=== PATIENT | male | born 1985 | race Caucasian/White ===

== ENCOUNTER 2024-05-28 16:38 | Inpatient (IN) ==
--- NOTE | 2024-05-28 16:58 | EKG ---
Test Reason : elevated heartrate Blood Pressure : */* mmHG Vent. Rate : 127 BPM Atrial Rate : 127 BPM P-R Int : 142 ms QRS Dur : 90 ms QT Int : 294 ms P-R-T Axes : 50 61 -60 degrees QTc Int : 427 ms Sinus tachycardia Abnormal ECG No previous ECGs available Confirmed by Jose El MD ([id number]) on 05/29/2024 5:49:33 AM Referred By: Confirmed By: Jose El MD
[2024-05-28 17:03] VITALS: BMI 27.0
--- NOTE | 2024-05-28 17:11 | DR.SOBA ---
HPI Time Seen Time Seen by Provider: 05/28/24 16:58 Primary Care Physician Primary Care Physician: Jose Juan Complaints Chief Complaint Doctors Comments: 38-year-old male presents for evaluation. Patient was seen here last p.m. after developing flulike illness yesterday. Was found to have too numerous to count red blood cells and white blood cells in his urine. Patient was treated for a UTI. CT of the abdomen pelvis was unremarkable for acute abnormalities last p.m.. Patient started feeling worse after lunch today. He is spiking a fever. Developed nausea, dizziness, sensation of shortness of breath. Has been a little confused per the spouse . H ad hematuria last p.m., was better initially this a.m., but still some this afternoon. No history of previous UTI issues, no prostate issues, is monogamous. Patient's fever is 102.7. Chief Complaint:: pt amb to triage with c/o SOB since after lunch, dizziness, nausea, and chills, he c/o rash to upper chest area since this am, pt reports he was seen in the ER last night and dx with UTI, reports pt seems confused to her at times Self Treatment fo Chief Complaint: Cipro IV last night in ER and Cipro PO today that was ordered last night COVID-19 Coronavirus risk:travel/contact w/high risk person: No Has patient experienced Coronavirus symptoms: No Reviewed Nurses Notes Reviewed: Yes Source History Provided: Patient and Significant Other Mode of Arrival Mode of Arrival: Ambulatory Timing Onset of Chief Complaint: 05/28/24 PMH PMH Past Medical History: Yes Past Medical History: Anxiety and Hypertension Past Surgical History: Yes Surgical History: Ortho Surgery, Tonsillectomy and Other Past Surgical History Comment: T&A Family History History of Family Medical Conditions: Yes Family Medical History: Diabetes Mellitus and Cancer Social History Does patient currently use any type of tobacco product: No Alcohol Use: None Do you use any recreational Drugs:: No Lives With: Spouse Lives Where: Home Travel Risk Coronavirus risk:travel/contact w/high risk person: No Has patient experienced Coronavirus symptoms: No Infectious screening Have you traveled outside the country in the last 6 months?: No Isolation: Standard ROS Review of Systems Constitutional: Chills and Fever Eyes: No Symptoms Reported ENTM: No Symptoms Reported Respiratoy: No Symptoms Reported Cardiovascular: No Symptoms Reported Gastrointestinal/Abdominal: Nausea Genitourinary: Hematuria Neurological: Weakness and Dizziness Musculoskeletal: Muscle Pain Integumentary: No Symptoms Reported Hematologic/Lymphatic: No Symptoms Reported All Other Systems: Reviewed and Negative PE Vital Signs Vitals: Vital Signs Temperature 100.6 F Temperature 102.3 F Pulse Rate 113 Pulse Rate 112 Pulse Rate 108 Pulse Rate 108 Pulse Rate 109 Pulse Rate 114 Pulse Rate 115 Pulse Rate 122 Pulse Rate 132 Respiratory Rate 19 Respiratory Rate 21 Respiratory Rate 19 Respiratory Rate 19 Respiratory Rate 16 Respiratory Rate 19 Respiratory Rate 16 Respiratory Rate 24 Respiratory Rate 30 Blood Pressure 126/58 Blood Pressure 102/60 Blood Pressure 94/54 Blood Pressure 136/59 O2 Sat by Pulse Oximetry 96 O2 Sat by Pulse Oximetry 97 O2 Sat by Pulse Oximetry 96 O2 Sat by Pulse Oximetry 96 O2 Sat by Pulse Oximetry 96 O2 Sat by Pulse Oximetry 96 O2 Sat by Pulse Oximetry 94 O2 Sat by Pulse Oximetry 97 O2 Sat by Pulse Oximetry 94 General General Appearance: Alert and In No Apparent Distress Eyes Eye exam: PERRL and EOMI ENT ENT Exam: Normal Oropharynx, Mucous Membranes Moist and TM's Normal Bilaterally Neck Neck Exam: Normal Inspection and Full ROM; negative Meningismus Respiratory Respiratory Exam: Normal Lung Sounds Bilat; negative Accessory Muscle Use or Respiratory Distress Cardiovascular Cardiovascular Exam: Regular Rate, Normal Rhythm, Tachycardia and Normal Heart Sounds Abdominal Exam Abdominal Exam: Normal Bowel Sounds, Soft and Tenderness (Suprapubic region, no rebound) Extremities Extremities Exam: Normal Inspection and Full ROM; negative Edema Back Back Exam: Normal Inspection; negative (R) CVA Tenderness or (L) CVA Tenderness Neurologic Neurological Exam: Alert, Oriented X3 and CN II-XII Intact; negative Motor Sensory Deficit Skin Skin Exam: Warm and Dry COURSE Treatment Treatment: 38-year-old male seen and treated here last p.m. for UTI. Worsened this afternoon. Returned with a fever of 102+. Workup initiated. Patient given IV fluids, white blood cell count was 19,000 yesterday, is up to 27,000 now. Has 87% neutrophils, no reported bands. Chemistries overall acceptable. Has good kidney function. Swabs were negative for strep and COVID respiratory panel. Lactic acid elevated at 1.9, blood cultures were obtained. Patient was given IV Rocephin, 1 g. Rectal exam shows the patient have a tender, slightly boggy prostate. Recommend observation admission for further IV fluids, IV antibiotic treatment for probable prostatitis. 1952 - Discussed with his covering physician, Dr. Hammer, accepts the admission. Will continue IV Rocephin, IV Levaquin & IV fluids. ROR Labs Reviewed Laboratory Results Reviewed?: Yes 05/29/24 05:35 05/29/24 05:35 Laboratory: WBC 27.0 X10^3/uL (3.6-10.0) H 05/28/24 17:08 RBC 4.53 X10^6/uL (4.7-6.0) L 05/28/24 17:08 Hgb 13.8 g/dL (13.5-18.0) 05/28/24 17:08 Hct 40.3 % (42.0-54.0) L 05/28/24 17:08 MCV 89.0 fL (80.0-100.0) 05/28/24 17:08 MCH 30.4 pg (27.0-34.0) 05/28/24 17:08 MCHC 34.2 g/dL (33.0-35.0) 05/28/24 17:08 RDW 13.2 % (11.6-16.5) 05/28/24 17:08 Plt Count 294 X10^3/uL (150.0-450.0) 05/28/24 17:08 Plt Count Comment Adequate (ADEQUATE) 05/28/24 17:08 MPV 7.5 fL (7.4-11.0) 05/28/24 17:08 Neut % (Auto) 89.8 % (42.0-75.0) H 05/28/24 17:08 Lymph % (Auto) 5.0 % (21.0-51.0) L 05/28/24 17:08 [place] % (Auto) 5.0 % (0.0-13.0) 05/28/24 17:08 Eos % (Auto) 0.1 % (0.9-2.9) L 05/28/24 17:08 Baso % (Auto) 0.1 % (0.2-1.0) L 05/28/24 17:08 Neut # (Auto) 24.2 x10^3/uL (2.2-4.8) H 05/28/24 17:08 Lymph # (Auto) 1.4 X10^3/uL (1.3-2.9) 05/28/24 17:08 [place] # (Auto) 1.3 x10^3/uL (0.3-0.8) H 05/28/24 17:08 Eos # (Auto) 0.0 x10^3/uL (0.0-0.2) 05/28/24 17:08 Baso # (Auto) 0.0 X10^3/uL (0.0-0.1) 05/28/24 17:08 Absolute Nucleated RBC 0.0 /100WBC 05/28/24 17:08 Total Counted 100 05/28/24 17:08 Neutrophils % (Manual) 87 % (39-76) H 05/28/24 17:08 Lymphocytes % (Manual) 10 % (13-43) L 05/28/24 17:08 Monocytes % (Manual) 3 % (4-9) L 05/28/24 17:08 Plt Morphology Comment Normal (NORMAL) 05/28/24 17:08 RBC Morphology Normal (NORMAL) 05/28/24 17:08 Sodium 134 mmol/L (136-145) L 05/28/24 17:08 Corrected Sodium 135 mmol/L (136-145) L 05/28/24 17:08 Potassium 3.8 mmol/L (3.5-5.1) 05/28/24 17:08 Chloride 99 mmol/L (98-107) 05/28/24 17:08 Carbon Dioxide 26.5 mmol/L (21-32) 05/28/24 17:08 BUN 8 mg/dL (7-18) 05/28/24 17:08 Creatinine 1.10 mg/dL (0.70-1.30) 05/28/24 17:08 Est GFR (MDRD) Af Amer > 60 (>60) 05/28/24 17:08 Est GFR (MDRD) Non-Af > 60 (>60) 05/28/24 17:08 Glucose 130 mg/dL (65-99) H 05/28/24 17:08 Lactic Acid 1.9 mmol/L (0.4-2.0) 05/28/24 17:08 Calcium 8.9 mg/dL (8.5-10.1) 05/28/24 17:08 Corrected Calcium TNP 05/28/24 17:08 Total Bilirubin 1.10 mg/dL (0.2-1.0) H 05/28/24 17:08 AST 45 Units/L (15-37) H 05/28/24 17:08 ALT 60 Units/L (12-78) 05/28/24 17:08 Alkaline Phosphatase 89 Units/L (46-116) 05/28/24 17:08 Creatine Kinase 61 Units/L (39-308) 05/28/24 17:08 Total Protein 7.3 g/dL (6.4-8.2) 05/28/24 17:08 Albumin 3.6 g/dL (3.4-5.0) 05/28/24 17:08 Globulin 3.7 g/dL (2.5-4.5) 05/28/24 17:08 Albumin/Globulin Ratio 1.0 Ratio (1.1-2.1) L 05/28/24 17:08 Specimen Type Clean catch urine 05/28/24 19:13 Urine Color [place] (YELLOW) 05/28/24 19:13 Urine Appearance Clear (CLEAR) 05/28/24 19:13 Urine pH Cancelled 05/28/24 19:13 Ur Specific [place] Cancelled 05/28/24 19:13 Urine Protein Cancelled 05/28/24 19:13 Urine Glucose (UA) Cancelled 05/28/24 19:13 Urine Ketones Cancelled 05/28/24 19:13 Urine Blood Cancelled 05/28/24 19:13 Urine Nitrite Cancelled 05/28/24 19:13 Urine Bilirubin Cancelled 05/28/24 19:13 Urine Urobilinogen Cancelled 05/28/24 19:13 Ur Leukocyte Esterase Cancelled 05/28/24 19:13 Urine RBC 0-2 /HPF (0-3) 05/28/24 19:13 Urine WBC 3-5 /HPF (0-5) 05/28/24 19:13 Ur Squamous Epith Cells Rare /HPF (NEGATIVE) 05/28/24 19:13 Amorphous Sediment Trace /HPF (NEGATIVE) 05/28/24 19:13 Urine Bacteria Trace /HPF (NEGATIVE) 05/28/24 19:13 Ur Culture Indicated? No/not indicated 05/28/24 19:13 SARS-CoV-2 (PCR) Negative (NEGATIVE) 05/28/24 17:15 Influenza Type A (PCR) Negative (NEGATIVE) 05/28/24 17:15 Influenza Type B (PCR) Negative (NEGATIVE) 05/28/24 17:15 RSV (PCR) Negative (NEGATIVE) 05/28/24 17:15 S. pyogenes (TEM-PCR) Not detected (NOT DETECT) 05/28/24 17:15 WBC 27K EKG Rate: 127 [place]: Normal Rhythm: ST ST: Nonsp Opioid Opioid Risk Tool Age (Shubham box if 16-45): No History of Preadolescent Sexual Abuse: No Total: 0 Total Score Risk Category: Low Risk Copyright: Yemi ROUSSEAU predicting aberrant behaviors Discharge Plan Diagnosis Discharge Problem: Acute prostatitis Discharge Plan Patient Disposition: 09 ADMITTED INPATIENT Condition: Stable
[2024-05-28] MEDS: TYLENOL 500 MG TAB EXTRA STRENGTH PO ONE (17:15)
[2024-05-28] MEDS: NS 1,000 ML IV 1,000 ML IV ONE ×2 (17:16→18:17)
[2024-05-28 17:26] LABS: HEMOGLOBIN 13.8 g/dL (13.5-18.0); RED CELL DISTRIBUTION WIDTH 13.2 % (11.6-16.5)
[2024-05-28 17:38] LABS: BASOPHILS % (AUTO) 0.1 % (0.2-1.0); EOSINOPHILS % (AUTO) 0.1 % (0.9-2.9); HEMATOCRIT 40.3 % (42.0-54.0); LYMPHOCYTES # (AUTO) 1.4 X10^3/uL (1.3-2.9); MEAN CORPUSCULAR HEMOGLOBIN 30.4 pg (27.0-34.0); MEAN CORPUSCULAR HGB CONC 34.2 g/dL (33.0-35.0); MEAN PLATELET VOLUME 7.5 fL (7.4-11.0); MONOCYTES # (AUTO) 1.3 x10^3/uL (0.3-0.8); NEUTROPHILS # (AUTO) 24.2 x10^3/uL (2.2-4.8); NEUTROPHILS % (AUTO) 89.8 % (42.0-75.0); PLATELET COUNT 294 X10^3/uL (150.0-450.0); RED BLOOD COUNT 4.53 X10^6/uL (4.7-6.0)
[2024-05-28 17:40] LABS: ALANINE AMINOTRANSFERASE 60 Units/L (12-78); ALBUMIN 3.6 g/dL (3.4-5.0); ALKALINE PHOSPHATASE 89 Units/L (46-116); ASPARTATE AMINO TRANSFERASE 45 Units/L (15-37); BLOOD UREA NITROGEN 8 mg/dL (7-18); CALCIUM 8.9 mg/dL (8.5-10.1); CARBON DIOXIDE 26.5 mmol/L (21-32); CHLORIDE 99 mmol/L (98-107); COR NA(FOR HYPERGLY) 135 mmol/L (136-145); CREATINE KINASE 61 Units/L (39-308); GLUCOSE 130 mg/dL (65-99); POTASSIUM 3.8 mmol/L (3.5-5.1); SODIUM 134 mmol/L (136-145); TOTAL PROTEIN 7.3 g/dL (6.4-8.2); eGFR NON BLACK RACES > 60 (>60)
[2024-05-28] MEDS: ROCEPHIN VIAL 1 GRAM IVP ONE (17:57)
[2024-05-28 18:08] LABS: STREP A BY PCR NOT DETECTED (NOT DETECT)
[2024-05-28 18:21] LABS: PLATELET MORPHOLOGY COMMENT NORMAL (NORMAL)
[2024-05-28] MEDS: LEVAQUIN PREMIX IV 750 MG 750 MG/150 ML BAG IV SCH (19:35)
[2024-05-28 20:04] LABS: APPEARANCE,URINE CLEAR (CLEAR); COLOR,URINE ORANGE (YELLOW)
[2024-05-28 20:05] LABS: BACTERIA,URINE TRACE /HPF (NEGATIVE); RBC,URINE 0-2 /HPF (0-3); SQUAMOUS EPITHELIAL CELL,UR RARE /HPF (NEGATIVE)
[2024-05-28] MEDS ORDERED: ROCEPHIN VIAL 2 GRAMS 2 G in NS 100 ML IV 100 ML IV SCH (21:17)
[2024-05-28] MEDS ORDERED: CONSULT PHARMACY - POTASSIUM & MAGNESIUM XX SCH (21:17)
[2024-05-28] MEDS: D5 1/2 NS 1,000 ML 1,000 ML IV SCH (22:15)
[2024-05-28] MEDS: K-DUR TAB 20 MEQ PO ONE (22:16)
--- NOTE | 2024-05-28 23:21 | RAD ---
PROCEDURE: Chest X-ray 1 View. HISTORY: Shortness of Breath; . TECHNIQUE: AP view. COMPARISON: 06/21/2022. TECHNICAL QUALITY: Satisfactory. FINDINGS: Normal size heart. Mediastinum and hilar regions show no masses or lymphadenopathy. Normal central vascularity. No pulmonary consolidation, masses, pleural fluid, or pneumothorax. No acute bony abnormality. IMPRESSION: No evidence of active cardiopulmonary disease. THIS IS AN ELECTRONICALLY VERIFIED FINAL REPORT 05/28/2024 11:18 PM - Electronically signed by Calvin Shearer MD
[2024-05-29] MEDS: ZOFRAN INJ 4 MG VIAL IVP PRN (01:52)
[2024-05-29] MEDS: ROBAXIN PO PRN (01:52)
[2024-05-29 06:12] LABS: BASOPHILS % (AUTO) 0.1 % (0.2-1.0); HEMATOCRIT 37.7 % (42.0-54.0); HEMOGLOBIN 12.9 g/dL (13.5-18.0); LYMPHOCYTES % (AUTO) 6.8 % (21.0-51.0); MEAN CORPUSCULAR HEMOGLOBIN 30.4 pg (27.0-34.0); MEAN CORPUSCULAR HGB CONC 34.1 g/dL (33.0-35.0); MEAN CORPUSCULAR VOLUME 89.1 fL (80.0-100.0); MEAN PLATELET VOLUME 7.7 fL (7.4-11.0); MONOCYTES # (AUTO) 1.5 x10^3/uL (0.3-0.8); MONOCYTES % (AUTO) 4.9 % (0.0-13.0); NEUTROPHILS # (AUTO) 26.3 x10^3/uL (2.2-4.8); NEUTROPHILS % (AUTO) 88.2 % (42.0-75.0); PLATELET COUNT 288 X10^3/uL (150.0-450.0); RED BLOOD COUNT 4.23 X10^6/uL (4.7-6.0); RED CELL DISTRIBUTION WIDTH 13.7 % (11.6-16.5); WHITE BLOOD COUNT 29.8 X10^3/uL (3.6-10.0)
[2024-05-29 06:18] LABS: ALANINE AMINOTRANSFERASE 60 Units/L (12-78); ALBUMIN 3.1 g/dL (3.4-5.0); ALKALINE PHOSPHATASE 84 Units/L (46-116); ASPARTATE AMINO TRANSFERASE 33 Units/L (15-37); BLOOD UREA NITROGEN 6 mg/dL (7-18); CALCIUM 8.6 mg/dL (8.5-10.1); CHLORIDE 102 mmol/L (98-107); COR CA(FOR HYPOALB) 9.3 mg/dL (8.5-10.1); COR NA(FOR HYPERGLY) 137 mmol/L (136-145); CREATININE 0.89 mg/dL (0.70-1.30); GLUCOSE 154 mg/dL (65-99); POTASSIUM 3.9 mmol/L (3.5-5.1); SODIUM 136 mmol/L (136-145); TOTAL PROTEIN 6.9 g/dL (6.4-8.2); eGFR NON BLACK RACES > 60 (>60)
[2024-05-29 07:19] LABS: BAND NEUTROPHILS % 5 % (0-10)
[2024-05-29 07:20] LABS: PLATELET MORPHOLOGY COMMENT NORMAL (NORMAL)
[2024-05-29] MEDS: PROzac PO SCH (09:58)
[2024-05-29] MEDS ORDERED: ZOFRAN INJ 4 MG VIAL IVP PRN (10:19)
[2024-05-29] MEDS ORDERED: ULTRAM PO PRN (11:48)
[2024-05-29] MEDS: NORCO 5/325 MG TAB PO PRN (11:54)
[2024-05-29] MEDS: ROCEPHIN VIAL 2 GRAMS 2 G in NS 100 ML IV 100 ML IV SCH (12:25)
--- NOTE | 2024-05-29 13:10 | DR.H&P ---
H&P History & Physical for Day of: H&P Date: 05/29/24 Chief Complaint Chief Complaint: fever History of Present Illness History of Present Illness: Patient seen with spouse in ER overflow. Admitted due to sepsis thought secondary to acute prostatitis. White count is trending down now. He has been on IV Levaquin for 24 hours. He is feeling somewhat better. Vitals are stabilizing. He was originally seen in the ER 2 days ago and sent home on Cipro. Had 1 dose before returning feeling much worse. He did not have any muscle or tendon pain at that time. Denies any major medical issues. Also denies any anal trauma, constipation, diarrhea, or other recent infections, hematuria, or pyuria Past medical history denies. Past surgical history includes tonsillectomy. Family history includes a mother of ovarian cancer. Father with diabetes. Social history: He is . He does work full-time in an office setting. No tobacco, alcohol, or illicit drug use. 12pt ROS otherwise negative. Physical exam: Well-developed, well-nourished male in no acute distress. Hearing is grossly intact. Extraocular movements are grossly normal. Neck has full range of motion and no swelling. Heart regular rate and rhythm with no murmurs. Lungs are clear to auscultation and he speaking in full sentences with no respiratory distress. GI with normal bowel sounds, soft, nontender, no distention. Prostate deferred as ER performed a TIANA yesterday and found to be boggy. Psych is appropriate and clear. Neurologic has him alert and oriented x 4. Skin is appropriate color and turgor. Extremities moves all equally well. Past Medical History Past Medical History: Anxiety and Hypertension Past Surgical History Surgical History: Ortho Surgery, Tonsillectomy and Other Family History Family Medical History: Diabetes Mellitus and Cancer Social History Does patient currently use any type of tobacco product: No Type of Tobacco Use: None Does any household member use tobacco: No Alcohol Use: None Drug Use: None Medications Home Medications: Home Medications Medication Instructions Recorded Confirmed Type fluoxetine 20 mg capsule 20 mg PO QAM 05/27/24 05/28/24 History methocarbamol 500 mg tablet 500 mg PO TID PRN 05/27/24 05/28/24 History Allergies Allergies Allergy/AdvReac Type Severity Reaction Status Date / Time No Known Drug Allergies Allergy Verified 05/28/24 17:04 Labs 05/29/24 05:35 05/29/24 05:35 Labs: 05/28/24 17:18 Blood Blood Culture - Preliminary Laboratory WBC 29.8 X10^3/uL (3.6-10.0) H 05/29/24 05:35 RBC 4.23 X10^6/uL (4.7-6.0) L 05/29/24 05:35 Hgb 12.9 g/dL (13.5-18.0) L 05/29/24 05:35 Hct 37.7 % (42.0-54.0) L 05/29/24 05:35 MCV 89.1 fL (80.0-100.0) 05/29/24 05:35 MCH 30.4 pg (27.0-34.0) 05/29/24 05:35 MCHC 34.1 g/dL (33.0-35.0) 05/29/24 05:35 RDW 13.7 % (11.6-16.5) 05/29/24 05:35 Plt Count 288 X10^3/uL (150.0-450.0) 05/29/24 05:35 Plt Count Comment Adequate (ADEQUATE) 05/29/24 05:35 MPV 7.7 fL (7.4-11.0) 05/29/24 05:35 Neut % (Auto) 88.2 % (42.0-75.0) H 05/29/24 05:35 Lymph % (Auto) 6.8 % (21.0-51.0) L 05/29/24 05:35 [place] % (Auto) 4.9 % (0.0-13.0) 05/29/24 05:35 Eos % (Auto) 0.0 % (0.9-2.9) L 05/29/24 05:35 Baso % (Auto) 0.1 % (0.2-1.0) L 05/29/24 05:35 Neut # (Auto) 26.3 x10^3/uL (2.2-4.8) H 05/29/24 05:35 Lymph # (Auto) 2.0 X10^3/uL (1.3-2.9) 05/29/24 05:35 [place] # (Auto) 1.5 x10^3/uL (0.3-0.8) H 05/29/24 05:35 Eos # (Auto) 0.0 x10^3/uL (0.0-0.2) 05/29/24 05:35 Baso # (Auto) 0.0 X10^3/uL (0.0-0.1) 05/29/24 05:35 Absolute Nucleated RBC 0.2 /100WBC 05/29/24 05:35 Total Counted 100 05/29/24 05:35 Neutrophils % (Manual) 76 % (39-76) 05/29/24 05:35 Band Neutrophils % 5 % (0-10) 05/29/24 05:35 Lymphocytes % (Manual) 11 % (13-43) L 05/29/24 05:35 Monocytes % (Manual) 8 % (4-9) 05/29/24 05:35 Plt Morphology Comment Normal (NORMAL) 05/29/24 05:35 RBC Morphology Normal (NORMAL) 05/29/24 05:35 Sodium 136 mmol/L (136-145) 05/29/24 05:35 Corrected Sodium 137 mmol/L (136-145) 05/29/24 05:35 Potassium 3.9 mmol/L (3.5-5.1) 05/29/24 05:35 Chloride 102 mmol/L (98-107) 05/29/24 05:35 Carbon Dioxide 28.0 mmol/L (21-32) 05/29/24 05:35 BUN 6 mg/dL (7-18) L 05/29/24 05:35 Creatinine 0.89 mg/dL (0.70-1.30) 05/29/24 05:35 Est GFR (MDRD) Af Amer > 60 (>60) 05/29/24 05:35 Est GFR (MDRD) Non-Af > 60 (>60) 05/29/24 05:35 Glucose 154 mg/dL (65-99) H 05/29/24 05:35 Lactic Acid 1.9 mmol/L (0.4-2.0) 05/28/24 17:08 Calcium 8.6 mg/dL (8.5-10.1) 05/29/24 05:35 Corrected Calcium 9.3 mg/dL (8.5-10.1) 05/29/24 05:35 Total Bilirubin 0.70 mg/dL (0.2-1.0) 05/29/24 05:35 AST 33 Units/L (15-37) 05/29/24 05:35 ALT 60 Units/L (12-78) 05/29/24 05:35 Alkaline Phosphatase 84 Units/L (46-116) 05/29/24 05:35 Creatine Kinase 61 Units/L (39-308) 05/28/24 17:08 Total Protein 6.9 g/dL (6.4-8.2) 05/29/24 05:35 Albumin 3.1 g/dL (3.4-5.0) L 05/29/24 05:35 Globulin 3.8 g/dL (2.5-4.5) 05/29/24 05:35 Albumin/Globulin Ratio 0.8 Ratio (1.1-2.1) L 05/29/24 05:35 Specimen Type Clean catch urine 05/28/24 19:13 Urine Color [place] (YELLOW) 05/28/24 19:13 Urine Appearance Clear (CLEAR) 05/28/24 19:13 Urine pH Cancelled 05/28/24 19:13 Ur Specific [place] Cancelled 05/28/24 19:13 Urine Protein Cancelled 05/28/24 19:13 Urine Glucose (UA) Cancelled 05/28/24 19:13 Urine Ketones Cancelled 05/28/24 19:13 Urine Blood Cancelled 05/28/24 19:13 Urine Nitrite Cancelled 05/28/24 19:13 Urine Bilirubin Cancelled 05/28/24 19:13 Urine Urobilinogen Cancelled 05/28/24 19:13 Ur Leukocyte Esterase Cancelled 05/28/24 19:13 Urine RBC 0-2 /HPF (0-3) 05/28/24 19:13 Urine WBC 3-5 /HPF (0-5) 05/28/24 19:13 Ur Squamous Epith Cells Rare /HPF (NEGATIVE) 05/28/24 19:13 Amorphous Sediment Trace /HPF (NEGATIVE) 05/28/24 19:13 Urine Bacteria Trace /HPF (NEGATIVE) 05/28/24 19:13 Ur Culture Indicated? No/not indicated 05/28/24 19:13 SARS-CoV-2 (PCR) Negative (NEGATIVE) 05/28/24 17:15 Influenza Type A (PCR) Negative (NEGATIVE) 05/28/24 17:15 Influenza Type B (PCR) Negative (NEGATIVE) 05/28/24 17:15 RSV (PCR) Negative (NEGATIVE) 05/28/24 17:15 S. pyogenes (TEM-PCR) Not detected (NOT DETECT) 05/28/24 17:15 Physical Exam Vital Signs: Vital Signs Temperature 97.7 F Pulse Rate 110 Pulse Rate 108 Pulse Rate 109 Pulse Rate 100 Pulse Rate 99 Pulse Rate 106 Pulse Rate 104 Pulse Rate 107 Pulse Rate 104 Pulse Rate 112 Respiratory Rate 20 Respiratory Rate 24 Respiratory Rate 18 Respiratory Rate 21 Respiratory Rate 16 Respiratory Rate 14 Respiratory Rate 18 Respiratory Rate 15 Respiratory Rate 20 Respiratory Rate 17 Respiratory Rate 27 Blood Pressure 105/66 Blood Pressure 98/59 Blood Pressure 99/55 O2 Sat by Pulse Oximetry 100 O2 Sat by Pulse Oximetry 97 O2 Sat by Pulse Oximetry 97 O2 Sat by Pulse Oximetry 96 O2 Sat by Pulse Oximetry 97 O2 Sat by Pulse Oximetry 96 O2 Sat by Pulse Oximetry 97 O2 Sat by Pulse Oximetry 96 O2 Sat by Pulse Oximetry 99 Assessment/Plan (1) Sepsis: Qualifiers: Sepsis type: Escherichia coli Sepsis acute organ dysfunction status: without acute organ dysfunction Qualified Code(s): A41.51 - Sepsis due to Escherichia coli [E. coli] Narrative Support Text: Leukocytosis, fever, tachypnea, and tachycardia. E. coli from urine culture on 05/27. Continue Levaquin. Continue IV fluids. Continue close monitoring. If patient continues to improve throughout the day will likely discharge home tomorrow on oral Levaquin. Status: Acute (2) Acute bacterial prostatitis: Narrative Support Text: See above Status: Acute (3) Escherichia coli infection: Narrative Support Text: See above. Status: Acute
[2024-05-29] MEDS: NORCO 5/325 MG TAB ONE (13:40)
[2024-05-30 05:18] LABS: BASOPHILS % (AUTO) 0.2 % (0.2-1.0); EOSINOPHILS # (AUTO) 0.1 x10^3/uL (0.0-0.2); EOSINOPHILS % (AUTO) 0.9 % (0.9-2.9); HEMATOCRIT 36.5 % (42.0-54.0); HEMOGLOBIN 12.2 g/dL (13.5-18.0); LYMPHOCYTES # (AUTO) 2.9 X10^3/uL (1.3-2.9); LYMPHOCYTES % (AUTO) 20.8 % (21.0-51.0); MEAN CORPUSCULAR HEMOGLOBIN 30.1 pg (27.0-34.0); MEAN CORPUSCULAR HGB CONC 33.5 g/dL (33.0-35.0); MEAN PLATELET VOLUME 7.6 fL (7.4-11.0); MONOCYTES # (AUTO) 0.7 x10^3/uL (0.3-0.8); MONOCYTES % (AUTO) 5.2 % (0.0-13.0); NEUTROPHILS # (AUTO) 10.2 x10^3/uL (2.2-4.8); NEUTROPHILS % (AUTO) 72.9 % (42.0-75.0); PLATELET COUNT 285 X10^3/uL (150.0-450.0); RED BLOOD COUNT 4.05 X10^6/uL (4.7-6.0); RED CELL DISTRIBUTION WIDTH 13.4 % (11.6-16.5)
[2024-05-30 05:28] LABS: ALANINE AMINOTRANSFERASE 63 Units/L (12-78); ALBUMIN 2.6 g/dL (3.4-5.0); ALKALINE PHOSPHATASE 79 Units/L (46-116); ASPARTATE AMINO TRANSFERASE 35 Units/L (15-37); BLOOD UREA NITROGEN 5 mg/dL (7-18); CALCIUM 8.5 mg/dL (8.5-10.1); CARBON DIOXIDE 28.5 mmol/L (21-32); CHLORIDE 106 mmol/L (98-107); COR CA(FOR HYPOALB) 9.6 mg/dL (8.5-10.1); COR NA(FOR HYPERGLY) 141 mmol/L (136-145); CREATININE 0.81 mg/dL (0.70-1.30); GLUCOSE 130 mg/dL (65-99); POTASSIUM 3.9 mmol/L (3.5-5.1); SODIUM 140 mmol/L (136-145); TOTAL PROTEIN 6.1 g/dL (6.4-8.2); eGFR NON BLACK RACES > 60 (>60)
--- NOTE | 2024-05-30 13:51 | PCM.DCPLAN ---
DISCHARGE SUMMARY Admission Date Date of Admission: 05/29/24 Discharge Date Discharge Date: 05/30/24 Admission Diagnoses (1) Sepsis: Status: Acute (2) Acute bacterial prostatitis: Status: Acute (3) Escherichia coli infection: Status: Acute Discharge Medications Discharge Medications: Home Medication List levofloxacin 750 mg tablet 750 mg PO QDAY 7 days #7 tabs 05/30/24 [Rx] Prescriptions: levofloxacin [facility] Course Vital Signs: Vital Signs Temperature 97.8 F Pulse Rate 75 Respiratory Rate 18 Blood Pressure 82/46 O2 Sat by Pulse Oximetry 98 Latest Lab Results: Laboratory Last Values WBC 14.0 X10^3/uL (3.6-10.0) H D 05/30/24 04:58 RBC 4.05 X10^6/uL (4.7-6.0) L 05/30/24 04:58 Hgb 12.2 g/dL (13.5-18.0) L 05/30/24 04:58 Hct 36.5 % (42.0-54.0) L 05/30/24 04:58 MCV 90.0 fL (80.0-100.0) 05/30/24 04:58 MCH 30.1 pg (27.0-34.0) 05/30/24 04:58 MCHC 33.5 g/dL (33.0-35.0) 05/30/24 04:58 RDW 13.4 % (11.6-16.5) 05/30/24 04:58 Plt Count 285 X10^3/uL (150.0-450.0) 05/30/24 04:58 Plt Count Comment Adequate (ADEQUATE) 05/29/24 05:35 MPV 7.6 fL (7.4-11.0) 05/30/24 04:58 Neut % (Auto) 72.9 % (42.0-75.0) 05/30/24 04:58 Lymph % (Auto) 20.8 % (21.0-51.0) L 05/30/24 04:58 [place] % (Auto) 5.2 % (0.0-13.0) 05/30/24 04:58 Eos % (Auto) 0.9 % (0.9-2.9) 05/30/24 04:58 Baso % (Auto) 0.2 % (0.2-1.0) 05/30/24 04:58 Neut # (Auto) 10.2 x10^3/uL (2.2-4.8) H 05/30/24 04:58 Lymph # (Auto) 2.9 X10^3/uL (1.3-2.9) 05/30/24 04:58 [place] # (Auto) 0.7 x10^3/uL (0.3-0.8) 05/30/24 04:58 Eos # (Auto) 0.1 x10^3/uL (0.0-0.2) 05/30/24 04:58 Baso # (Auto) 0.0 X10^3/uL (0.0-0.1) 05/30/24 04:58 Absolute Nucleated RBC 0.0 /100WBC 05/30/24 04:58 Total Counted 100 05/29/24 05:35 Neutrophils % (Manual) 76 % (39-76) 05/29/24 05:35 Band Neutrophils % 5 % (0-10) 05/29/24 05:35 Lymphocytes % (Manual) 11 % (13-43) L 05/29/24 05:35 Monocytes % (Manual) 8 % (4-9) 05/29/24 05:35 Plt Morphology Comment Normal (NORMAL) 05/29/24 05:35 RBC Morphology Normal (NORMAL) 05/29/24 05:35 Sodium 140 mmol/L (136-145) 05/30/24 04:58 Corrected Sodium 141 mmol/L (136-145) 05/30/24 04:58 Potassium 3.9 mmol/L (3.5-5.1) 05/30/24 04:58 Chloride 106 mmol/L (98-107) 05/30/24 04:58 Carbon Dioxide 28.5 mmol/L (21-32) 05/30/24 04:58 BUN 5 mg/dL (7-18) L 05/30/24 04:58 Creatinine 0.81 mg/dL (0.70-1.30) 05/30/24 04:58 Est GFR (MDRD) Af Amer > 60 (>60) 05/30/24 04:58 Est GFR (MDRD) Non-Af > 60 (>60) 05/30/24 04:58 Glucose 130 mg/dL (65-99) H 05/30/24 04:58 Lactic Acid 1.9 mmol/L (0.4-2.0) 05/28/24 17:08 Calcium 8.5 mg/dL (8.5-10.1) 05/30/24 04:58 Corrected Calcium 9.6 mg/dL (8.5-10.1) 05/30/24 04:58 Total Bilirubin 0.20 mg/dL (0.2-1.0) 05/30/24 04:58 AST 35 Units/L (15-37) 05/30/24 04:58 ALT 63 Units/L (12-78) 05/30/24 04:58 Alkaline Phosphatase 79 Units/L (46-116) 05/30/24 04:58 Creatine Kinase 61 Units/L (39-308) 05/28/24 17:08 Total Protein 6.1 g/dL (6.4-8.2) L 05/30/24 04:58 Albumin 2.6 g/dL (3.4-5.0) L 05/30/24 04:58 Globulin 3.5 g/dL (2.5-4.5) 05/30/24 04:58 Albumin/Globulin Ratio 0.7 Ratio (1.1-2.1) L 05/30/24 04:58 Specimen Type Clean catch urine 05/28/24 19:13 Urine Color [place] (YELLOW) 05/28/24 19:13 Urine Appearance Clear (CLEAR) 05/28/24 19:13 Urine pH Cancelled 05/28/24 19:13 Ur Specific [place] Cancelled 05/28/24 19:13 Urine Protein Cancelled 05/28/24 19:13 Urine Glucose (UA) Cancelled 05/28/24 19:13 Urine Ketones Cancelled 05/28/24 19:13 Urine Blood Cancelled 05/28/24 19:13 Urine Nitrite Cancelled 05/28/24 19:13 Urine Bilirubin Cancelled 05/28/24 19:13 Urine Urobilinogen Cancelled 05/28/24 19:13 Ur Leukocyte Esterase Cancelled 05/28/24 19:13 Urine RBC 0-2 /HPF (0-3) 05/28/24 19:13 Urine WBC 3-5 /HPF (0-5) 05/28/24 19:13 Ur Squamous Epith Cells Rare /HPF (NEGATIVE) 05/28/24 19:13 Amorphous Sediment Trace /HPF (NEGATIVE) 05/28/24 19:13 Urine Bacteria Trace /HPF (NEGATIVE) 05/28/24 19:13 Ur Culture Indicated? No/not indicated 05/28/24 19:13 SARS-CoV-2 (PCR) Negative (NEGATIVE) 05/28/24 17:15 Influenza Type A (PCR) Negative (NEGATIVE) 05/28/24 17:15 Influenza Type B (PCR) Negative (NEGATIVE) 05/28/24 17:15 RSV (PCR) Negative (NEGATIVE) 05/28/24 17:15 S. pyogenes (TEM-PCR) Not detected (NOT DETECT) 05/28/24 17:15 Hospital Course: Patient admitted to the hospital with sepsis and acute prostatitis after 2 ER visits. He was started on Cipro at the first visit but only had 1 dose before he became much sicker and represented. Culture from that day did grow out E. coli. He responded well to IV Levaquin and was given 3 doses between the ER and inpatient side. He was discharged with instructions to finish 7 more days of p.o. Levaquin. It was advised he did not have to follow-up with urology but he could. He was given a refill on the Levaquin in case symptoms recurred later this year. He was instructed to follow-up with urology if he had a second episode in the next year. Vital stabilized and labs improved with IV Levaquin and IV fluids. Patient was discharged in much improved, good condition to home with spouse.
[2024-05-30 15:13] VITALS: BP 131/65; PULSE 86; RESP 18; TEMP 98.1; O2SAT 100
== END 2024-05-30 13:45 | disposition home or self-care (01) | DRG 728 ==
LOC: ER 16:38 → U 20:03 → MED/SURG 05-29 13:14
PROVIDERS: ADMIT Internal Medicine; ATTEND Internal Medicine
DX: I10 Essential (primary) hypertension; N41.0 Acute prostatitis; F41.8 Other specified anxiety disorders; R06.02 Shortness of breath; N39.0 Urinary tract infection, site not specified; R94.31 Abnormal electrocardiogram [ECG] [EKG]; R00.0 Tachycardia, unspecified; B96.29 Other Escherichia coli [E. coli] as the cause of diseases classified elsewhere; Z20.822 Contact with and (suspected) exposure to COVID-19